=== PATIENT | female | born 1945 | race Hispanic/Latino ===

== ENCOUNTER 2018-04-01 14:26 | Emergency (ER) | payer OTHER, MEDICARE ==
[2018-04-01 14:45] VITALS: TEMP 98.7; BMI 24.0
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
[2018-04-01 16:11] VITALS: BP 145/80; PULSE 72; RESP 18; O2SAT 98
== END 2018-04-01 16:10 | disposition home or self-care (01) ==
LOC: ED 14:26
DX: Z04.1 Encounter for examination and observation following transport accident (principal); I10 Essential (primary) hypertension; Z87.891 Personal history of nicotine dependence

== ENCOUNTER 2018-12-15 09:41 | Day surgery (SDC) | payer MEDICARE ==
[2018-12-14 10:19] VITALS: BMI 22.3
[2018-12-15 10:09] VITALS: RESP 18
[2018-12-15 10:18] LABS: BASO # 0.02 K/mm3 (0.0-2.0); BASO % 0.3 % (0.0-3.0); HEMOGLOBIN 11.4 g/dL (12.0-16.0); LYMPH # 0.9 (1.2-3.4); LYMPH % 12.2 % (22.0-35.0); MEAN CELL VOLUME 88.6 fl (80.0-105.0); MEAN CORPUSCULAR HEMOGLOBIN 28.3 pg (25.0-35.0); MEAN CORPUSCULAR HGB CONC 31.9 g/dl (31.0-37.0); MEAN PLATELET VOLUME 10.2 fl (7.0-11.0); MONO # 0.5 (0.1-0.6); MONO % 6.5 % (1.0-6.0); RBC 4.03 10^6/uL (3.5-6.1); RED CELL DISTRIBUTION WIDTH 14.7 % (11.5-14.5); WHITE BLOOD COUNT 7.7 10^3/uL (4.5-11.0)
[2018-12-15 10:24] LABS: INR 1.02; PARTIAL THROMBOPLASTIN TIME 33.8 Seconds (26.9-38.3); PROTHROMBIN TIME 11.5 SECONDS (9.4-12.5)
[2018-12-15 10:27] LABS: CALCIUM 10.1 mg/dL (8.4-10.5)
[2018-12-15] MEDS ORDERED: Lidocaine PF 2% (5 ml) Inj (For Cardiac Arrhy) ONE (11:23)
[2018-12-15] MEDS ORDERED: Midazolam 2 MG/2 ML VIAL ONE ×2 (11:45→11:54)
[2018-12-15] MEDS ORDERED: Sodium Chloride 0.45% 1,000 ML IV SCH (14:00)
[2018-12-15 14:14] VITALS: TEMP 98.3; O2SAT 99
[2018-12-15 14:40] VITALS: BP 138/70; PULSE 78
[2018-12-15] MEDS ORDERED: Oxycodone/Acetaminophen 5/325 mg Tab PO PRN (15:40)
--- NOTE | 2018-12-15 19:22 | VASCULAR ---
PROCEDURE: Ultrasound and fluoroscopic right internal jugular venous access port. CLINICAL HISTORY: Ovarian carcinoma.Venous port for chemotherapy. PHYSICIAN(S): Angel Pfeiffer M.D. TECHNIQUE: The relative risks and indications of the procedure were explained to the patient and consent obtained. The patient was placed supine on the arteriogram table and the right neck and chest prepped and draped in the usual sterile fashion. Conscious sedation monitoring was provided throughout the procedure by a nurse. Antibiotics were given prior to the procedure. Under direct ultrasound guidance, the right internal jugular vein was punctured with a micro-puncture set. A 0.035 angled Glidewire was advanced into the IVC. A 4 cm incision was made below the right clavicle and the pocket blunted dissected. A 8 [place] single-lumen catheter, 20 cm long, was advanced to the SVC/RA junction. The catheter was trimmed and attached to the port. The port aspirates and injects easily. The port was placed in the pocket and closed in 2 layers. The patient tolerated the procedure well. IMPRESSION: Ultrasound and fluoroscopically placed right internal jugular venous access port.
== END 2018-12-15 13:44 | disposition home or self-care (01) ==
LOC: SDS 09:41
PROVIDERS: ATTEND Radiology Vascular & Interventional Radiology
DX: Z45.2 Encounter for adjustment and management of vascular access device (principal); C56.9 Malignant neoplasm of unspecified ovary; I10 Essential (primary) hypertension; F41.9 Anxiety disorder, unspecified; M48.00 Spinal stenosis, site unspecified
CPT/HCPCS: 36415; 36561; 76937; 77001; 80048; 85025; 85610; 85730; 99152; C1769; C1788; J0690; J1644; J2250; J2405; J3010

== ENCOUNTER 2018-12-21 13:31 | Outpatient (CLI) | payer MEDICARE | END 2018-12-21 13:32 | disposition home or self-care (01) | LOC: OPLAB 13:31 ==

== ENCOUNTER 2018-12-22 12:55 | Outpatient (CLI) | payer MEDICARE, MEDICAID | END 2018-12-22 12:56 | disposition home or self-care (01) | LOC: OPLAB 12:55 ==

== ENCOUNTER 2018-12-29 12:50 | Outpatient (CLI) | payer MEDICARE, OTHER | END 2018-12-29 12:51 | disposition home or self-care (01) | LOC: OPLAB 12:50 ==

== ENCOUNTER 2018-12-30 12:44 | Outpatient (CLI) | payer MEDICARE, OTHER | END 2018-12-30 12:45 | disposition home or self-care (01) | LOC: OPLAB 12:44 ==

== ENCOUNTER 2019-01-05 12:36 | Outpatient (CLI) | payer MEDICARE, OTHER | END 2019-01-05 12:37 | disposition home or self-care (01) | LOC: OPLAB 12:36 ==

== ENCOUNTER 2019-01-06 13:01 | Outpatient (CLI) | payer MEDICARE, OTHER | END 2019-01-06 13:02 | disposition home or self-care (01) | LOC: OPLAB 13:01 ==

== ENCOUNTER 2019-01-19 13:13 | Outpatient (CLI) | payer MEDICARE, OTHER | END 2019-01-19 13:14 | disposition home or self-care (01) | LOC: OPLAB 13:13 ==

== ENCOUNTER 2019-01-20 12:24 | Outpatient (CLI) | payer MEDICARE, OTHER | END 2019-01-20 12:25 | disposition home or self-care (01) | LOC: OPLAB 12:24 ==

== ENCOUNTER 2019-01-26 12:56 | Outpatient (CLI) | payer MEDICARE, OTHER | END 2019-01-26 12:57 | disposition home or self-care (01) | LOC: OPLAB 12:56 ==

== ENCOUNTER 2019-01-27 12:33 | Outpatient (CLI) | payer MEDICARE, OTHER | END 2019-01-27 12:34 | disposition home or self-care (01) | LOC: OPLAB 12:33 ==

== ENCOUNTER 2019-02-02 12:50 | Outpatient (CLI) | payer MEDICARE, OTHER | END 2019-02-02 12:51 | disposition home or self-care (01) | LOC: OPLAB 12:50 ==

== ENCOUNTER 2019-02-03 13:04 | Outpatient (CLI) | payer MEDICARE, OTHER | END 2019-02-03 13:05 | disposition home or self-care (01) | LOC: OPLAB 13:04 ==